=== PATIENT | female | born 1965 | race Caucasian/White ===

== ENCOUNTER 2024-01-06 05:59 | Day surgery (SDC) | payer BC ==
[~2024-01-06] VITALS: Ht 154.9 cm; Wt 75.9 kg
[~2024-01-06 05:59] MED LIST: CELE1CAP99 PO; LEVO137T2 PO; OMEP40CA5 PO; TIRZ10PE3 SQ
[2024-01-06] MEDS ORDERED: LR 1,000 ML IV SCH (06:45)
[2024-01-06] MEDS ORDERED: propofoL 200 MG/20 ML VIAL As Ordered ONE (06:57)
[2024-01-06] MEDS ORDERED: ONDANSETRON 4MG 2ML VIAL As Ordered ONE (06:57)
[2024-01-06] MEDS ORDERED: LIDOCAINE 2% 100MG/5ML SDV (FOR ANES.) As Ordered ONE (06:57)
[2024-01-06] MEDS ORDERED: MIDAZOLAM INJ 2MG/2ML VIAL As Ordered ONE (06:59)
[2024-01-06] MEDS ORDERED: fentaNYL 100 MCG/2 ML INJECTION As Ordered ONE (07:00)
[2024-01-06 07:45] LABS: HEMATOCRIT 35.1 % (36.0-47.0); HEMOGLOBIN 11.9 g/dl (12.0-15.5); MEAN CORPUSCULAR HEMOGLOBIN 30.9 pg (27.0-33.0); MEAN CORPUSCULAR HGB CONC 33.9 g/dl (32.0-36.5); MEAN CORPUSCULAR VOLUME 91.2 fl (80.0-96.0); PLATELET COUNT, AUTOMATED 279 10^3/uL (150-450); RED BLOOD COUNT 3.85 10^6/uL (4.00-5.40)
[2024-01-06] MEDS: ceFAZolin SOD 2 GM in IV 1 EA IV ONE (07:49)
[2024-01-06] MEDS ORDERED: ACETAMINOPHEN 1000MG/100ML IV BAG As Ordered ONE (07:53)
[2024-01-06] MEDS: VASOPRESSIN INJ 20UNITS/ML 1ML VIAL As Ordered ONE (08:47)
[2024-01-06] MEDS ORDERED: oxyCODONE 5MG TAB PO PRN (09:25)
[2024-01-06] MEDS: ONDANSETRON 4MG 2ML VIAL IV PRN (09:31)
[2024-01-06] MEDS: fentaNYL 100 MCG/2 ML INJECTION IV PRN (09:32)
[2024-01-06] MEDS ORDERED: SODIUM CHLORIDE 0.9% INJ 10 ML SYR IV PRN (10:10)
[2024-01-06] MEDS ORDERED: ACET-716 PO (10:22)
[2024-01-06] MEDS: ACETAMINOPH W/CODEINE #3 TAB UD PO ONE (10:42)
[2024-01-06 11:00] VITALS: BP 139/85; TEMP 97.6; O2SAT 99
== END 2024-01-06 11:06 | disposition home or self-care (01) ==
LOC: M SDC 05:59 → EDUNIT# 09:00 → M SDC 11:06
PROVIDERS: ATTEND Specialist
DX: N81.6 Rectocele (principal); E03.9 Hypothyroidism, unspecified; K21.9 Gastro-esophageal reflux disease without esophagitis; D64.9 Anemia, unspecified; Z79.899 Other long term (current) drug therapy; Z88.8 Allergy status to other drugs, medicaments and biological substances
CPT/HCPCS: 57250; 85027; 86850; 86900; 86901; 88302; J0131; J0665; J0690; J1100; J2250; J2405; J2598; J3010